=== PATIENT | female | born 1980 | race Caucasian/White ===

== ENCOUNTER 2017-03-15 09:09 | Emergency (ER) | payer MEDICAID, OTHER ==
--- NOTE | 2017-03-15 09:29 | ERNOTE ---
Time Seen by Provider: 03/15/17 09:20 Stated Complaint: COUGH Presenting Symptoms:: cough, sore throat Source: patient Exam Limitations: no limitations Immunizations: IMMUNIZATION HX Immunizations Up to Date Yes History of Influenza Vaccine Yes Hx Pneumococcal Vaccination No Allergies/Adverse Reactions: Allergies latex Allergy (Mild, Verified 03/15/17 09:22) Hives sumatriptan [From Imitrex] Adverse Reaction (Mild, Verified 03/15/17 09:22) Headache Home Medications: HOME MEDICATIONS Albuterol Sulfate [Ventolin HFA] 2 puff IH Q6H PRN 7 Days inhaler 03/15/17 [ Last Taken Unknown] Doxycycline Monohydrate 100 mg PO BID #20 tablet 03/15/17 [Last Taken Unknown] Gabapentin [Neurontin] 600 mg PO BID 03/15/17 [Last Taken Unknown] Topiramate 200 mg PO PRN 03/15/17 [Last Taken Unknown] - History of Present Ilness Narrative: Patient presents with a cough, sore throat and congestion that started 5 days ago. She states that at one point she was having body aches with chills and sweating however, that was over the weekend. Timing: intermittent Severity: moderate Frequency/Possible Cause: Reports: no prior episodes Modifying Factors - Improves: Reports: nothing Modifying Factors - Worsens: Reports: nothing Associated Symptoms: Reports: muscle aches, fever/chills Review of Systems - Review of Systems Constitutional: Present: See HPI EYE: Present: no symptoms reported ENT: Present: See HPI Respiratory: Present: cough, wheezing Cardiology: Present: no symptoms reported Gastrointestinal/Abdominal: Present: no symptoms reported Genitourinary: Present: no symptoms reported Musculoskeletal: Present: no symptoms reported Skin: Present: no symptoms reported Neurological: Present: no symptoms reported Endocrine: Present: no symptoms reported Hematologic/Lymphatic: Present: no symptoms reported Psych: Present: no symptoms reported - Patient's Past Medical History Patient History - Medical: Anxiety, Headache, Migraines Patient History - Cardiac/Respiratory: No pertinent hx Patient History - Cancer: No Hx of Cancer Patient History - Surgical Procedures: Back Surgery, Tubal Ligation, Other Patient History - Other: None LMP (females 10-50): other - Social History Living Situations: spouse Psych History: Hx of Anxiety Smoking Status: Current every day smoker Have you smoked in the past 12 months: Yes Do you dip or chew tobacco: No Alcohol Use: none Drug Use: none - Immunizations Immunizations Up to Date: Yes Hx Pneumococcal Vaccination: No History of Influenza Vaccine: Yes Physical Exam - Physical Exam General Appearance: Present: wd/wn, alert, mild distress Head Exam: Present: normal inspection, no evidence of injury Eye Exam: Normal inspection: bilateral, PERRL: bilateral Ears, Nose, Throat: Present: pharyngeal erythema Neck: Present: normal inspection, nontender Respiratory: Present: no accessory muscle use, chest nontender, wheezing, other - fine course breath sounds Cardiovascular/Chest: Present: regular rate, rhythm, no murmur, normal peripheral pulses Gastrointestinal/Abdominal: Present: normal bowel sounds, nontender, nondistended, soft, no organomegaly Rectal Exam: Present: deferred Back Exam: Present: normal inspection, normal range of motion Extremity Exam: Present: normal inspection, non-tender, no edema, normal range of motion Neurological Exam: Present: alert, oriented, normal mood/affect Skin Exam: Present: normal color, warm/dry Lymphatic Exam: Present: no adenopathy ED Progress - Results and Orders Patient's Lab Results:: I have reviewed the patient's lab results. - Vital Signs Patient's Vital Signs:: I have reviewed the patient's vital signs. Vital Signs: Vital Signs 03/15/17 09:15 Temperature 36.9 C Pulse Rate 106 H Respiratory 15 Rate Blood Pressure 121/71 O2 Sat by Pulse 99 Oximetry - X-Ray X-Ray #1 X-Ray: chest Interpretation: Reviewed by me - Progress/Reassessment Chief Complaint: Cough Plan - Plan Plan: Patient appears to have a mild exacerbation of her COPD and will be started on doxycycline and albuterol inhaler. Departure Clinical Impression: COPD (chronic obstructive pulmonary disease) with acute bronchitis - Departure Disposition: Home self-care Condition: Good Instructions: Chronic Obstructive Pulmonary Disease Exacerbation, [id number] Prescriptions: Albuterol Sulfate [Ventolin HFA] 2 puff IH Q6H PRN 7 Days inhaler PRN Reason: Wheezing Doxycycline Monohydrate 100 mg PO BID #20 tablet
[2017-03-15 10:31] VITALS: BP 124/70
== END 2017-03-15 10:27 | disposition home or self-care (01) ==
LOC: ER 09:09
DX: J44.9 Chronic obstructive pulmonary disease, unspecified (principal); F17.200 Nicotine dependence, unspecified, uncomplicated